=== PATIENT | female | born 1985 | race Caucasian/White ===

== ENCOUNTER 2016-08-15 21:25 | Emergency (ER) | payer OTHER ==
[2016-08-15] MEDS ORDERED: 0.9 % SODIUM CHLORIDE 1,000 ML IV ONE ×2 (21:34→22:51)
[2016-08-15] MEDS ORDERED: ONDANSETRON HCL/PF 4 MG/ 2ML VIAL IVP ONE (21:35)
[2016-08-15 22:06] LABS: BASOPHILS % 0.2 (0.0-1.5); EOSINOPHILS % 0.5 % (0.0-6.8); LYMPHOCYTES # 1.1 # k/uL (0.6-4.0); MEAN CORPUSCULAR HEMOGLOBIN 30.5 pg (28.0-34.0); MONOCYTES # 0.4 # k/uL (0.0-0.9); MONOCYTES % 2.3 % (0.0-11.0); NEUTROPHILS # 16.7 # k/uL (1.4-7.7)
[2016-08-15 22:19] LABS: eGFR (African) > 60; eGFR (Non-African) > 60
[2016-08-15] MEDS ORDERED: PROMETHAZINE HCL 25 MG in 0.9 % SODIUM CHLORIDE 50 ML IV ONE (22:52)
[2016-08-15] MEDS ORDERED: PROMETHAZINE HCL 25 MG/ML VIAL ONE (22:52)
[2016-08-15] MEDS ORDERED: CIPROFLOXACIN HCL 500 MG TABLET PO ONE ×2 (22:52)
--- NOTE | 2016-08-15 23:26 | ED Physician Documentation ---
General Adult - HISTORIAN Historian: patient - HPI Stated Complaint: abd pain n/v Chief Complaint: General Adult Onset: hours (5) Timing: still present Severity: moderate Further Comments: yes (Pt is a 30 yo female who developed n/v abd pain about 1 hr after eating at a [place] restaurant. N/v x > 10 episodes. No fever. Abd pain 2nd to vomiting.) - ROS CONST: other (malaise) EYES/ENT: none CVS/RESP: none GI/: abdominal pain, vomiting, nausea MS/SKIN/LYMPH: none - PAST HX Past History: other (anxiety/depression) Surgeries/Procedures: BTL, cholecystectomy, other (LEEP) Allergies/Adverse Reactions: Allergies Allergy/AdvReac Type Severity Reaction Status Date / Time metformin AdvReac Weakness Verified 08/15/16 21:36 Home Medications: Ambulatory Orders Medication Instructions Recorded Fluoxetine HCl [Fluoxetine HCl] 20 mg PO D 08/15/16 - SOCIAL HX Smoking History: non-smoker - FAMILY HX Family History: No - VITAL SIGNS Vital Signs: Vital Signs Temp Pulse Resp BP Pulse Ox 97.9 F 103 H 16 135/93 98 08/15/16 21:25 08/15/16 21:25 08/15/16 21:25 08/15/16 21:25 08/15/16 21:25 - REVIEWED ASSESSMENTS Nursing Assessment Reviewed: Yes Vitals Reviewed: Yes Progress - Progress Progress: NS 1 L IVF Zofran 4 mg IV Toradol 30 mg IV NS 1 L IVF with 25 mg Phenergan in IVF Rx Ciprofloxacin 500 mg po bid x 5 days, 1st dose in ER. Rx Zofran 4 mg ODT. Take one every 8 hrs as needed for nausea/vomiting. ED Results Lab/Radiology - Lab Results Lab Results: Lab Results 08/15/16 08/15/16 21:52 21:52 WBC 18.50 K/ul H K/ul (4.00-12.00) RBC 4.81 M/ul M/ul (3.90-5.20) Hgb 14.7 g/dL g/dL (12.0-16.0) Hct 42.6 % % (34.5-46.5) MCV 88.7 fl fl (80.0-100.0) MCH 30.5 pg pg (28.0-34.0) MCHC 34.4 g/dL g/dL (30.0-36.0) RDW 13.1 % % (11.3-14.3) Plt Count 310 K/mm3 K/mm3 (130-400) Neut % (Auto) 89.9 % H % (39.0-79.0) Lymph % (Auto) 6.1 % L % (16.0-50.0) [place] % (Auto) 2.3 % % (0.0-11.0) Eos % (Auto) 0.5 % % (0.0-6.8) Baso % (Auto) 0.2 (0.0-1.5) Neut # 16.7 # k/uL H # k/uL (1.4-7.7) Lymph # 1.1 # k/uL # k/uL (0.6-4.0) [place] # 0.4 # k/uL # k/uL (0.0-0.9) Eos # 0.1 # k/uL # k/uL (0.0-0.6) Baso # 0.0 # k/uL # k/uL (0.0-0.5) Reactive Lymphs % 1.0 % % (0.0-5.0) Reactive Lymphs # 0.2 # k/uL # k/uL (0.0-0.8) Sodium 142 mmol/L mmol/L (136-145) Potassium 4.1 mmol/L mmol/L (3.5-5.0) Chloride 110 mmol/L mmol/L (98-110) Carbon Dioxide 34 mmol/L H mmol/L (20-32) BUN 14 mg/dL mg/dL (10-26) Creatinine 0.6 mg/dL mg/dL (0.4-1.5) Est GFR ( Amer) > 60 (60 - ) Est GFR (Non-Af Amer) > 60 (60 - ) Glucose 146 mg/dL H mg/dL (70-99) Calcium 9.6 mg/dL mg/dL (8.5-10.5) Total Bilirubin 0.5 mg/dL mg/dL (0.2-1.2) AST 32 U/L U/L (0-41) ALT 42 U/L U/L (0-45) Alkaline Phosphatase 120 U/L H U/L (46-116) Total Protein 8.3 g/dL g/dL (6.0-8.5) Albumin 5.0 g/dL g/dL (3.0-5.5) Amylase 102 U/L U/L (20-104) - Orders Orders: ED Orders Category Date Time Status Place Saline Lock/IV Now Care 08/15/16 21:35 Active AMYLASE Routine Lab 08/15/16 21:52 Completed CBC/PLATELET/DIFF Routine Lab 08/15/16 21:52 Completed CMP Routine Lab 08/15/16 21:52 Completed UA [URINALYSIS] Routine Lab 08/15/16 Ordered 0.9 % Sodium Chloride [Normal Saline] 1,000 ml Med 08/15/16 21:34 Discontinued IV Q1H 0.9 % Sodium Chloride [Normal Saline] 1,000 ml Med 08/15/16 22:51 Active IV Q1H Ciprofloxacin HCl [Cipro] Med 08/15/16 22:52 Discontinued 500 mg PO .STK-MED ONE Ciprofloxacin HCl [Cipro] Med 08/15/16 22:52 Discontinued 500 mg PO NOW ONE Ondansetron HCl/Pf [Zofran 4 mg/2 ml] Med 08/15/16 21:35 Discontinued 4 mg IVP NOW ONE Promethazine HCl [Phenergan] Med 08/15/16 22:52 Discontinued 25 mg .ROUTE .STK-MED ONE Promethazine HCl [Phenergan] 25 mg Med 08/15/16 22:52 Discontinued 0.9 % Sodium Chloride [Sodium Chloride] 50 ml IV NOW General Adult Physical Exam - PHYSICAL EXAM GENERAL APPEARANCE: moderate distress EENT: ENT inspection normal, pharynx normal NECK: normal inspection, supple RESPIRATORY: no resp distress, chest non-tender, breath sounds normal CVS: reg rate & rhythm, heart sounds normal ABDOMEN: soft, no organomegaly, normal bowel sounds, tenderness (moderate diffuse abd tenderness) BACK: normal inspection, no CVA tenderness SKIN: warm/dry, normal color EXTREMITIES: non-tender, normal range of motion, no evidence of injury NEURO: oriented X3, motor nml, sensation nml Discharge Clincal Impression: Gastroenteritis Referrals: Primary Doctor,No [Primary Care Provider] - 2 Days Home Medications: Ambulatory Orders Fluoxetine HCl [Fluoxetine HCl] 20 mg PO D 08/15/16 Condition: Good Disposition: 01 HOME, SELF-CARE Decision to Admit: NO Decision Time: 23:30
[2016-08-15] MEDS ORDERED: KETOROLAC TROMETHAMINE 30 MG/1ML VIAL ONE (23:30)
[2016-08-15] MEDS ORDERED: KETOROLAC TROMETHAMINE 30 MG/1ML VIAL IVP ONE (23:30)
[2016-08-15] MEDS ORDERED: ONDANSETRON HCL 4 MG TAB.RAPDIS PO ONE (23:36)
[2016-08-15] MEDS ORDERED: ONDANSETRON HCL 4 MG TAB.RAPDIS ONE (23:36)
[2016-08-16 00:57] VITALS: BP 131/88
[2016-08-16 06:02] LABS: APPEARANCE,URINE CLEAR (CLEAR); COLOR,URINE YELLOW (YELLOW); OCCULT BLOOD,URINE 2+ (NEGATIVE); UROBILINOGEN URINE 0.2 Eu (0.2-1.0)
== END 2016-08-16 00:05 | disposition home or self-care (01) ==
LOC: ED 21:25
DX: K52.9 Noninfective gastroenteritis and colitis, unspecified (principal)
CPT/HCPCS: 80053; 81002; 82150; 85025; A9270; J1885; J2405; J2550; J7030; 96361; 96374; 96375; 99284; S1016

== ENCOUNTER 2016-10-01 20:18 | Emergency (ER) | payer OTHER ==
--- NOTE | 2016-10-01 21:03 | ED Physician Documentation ---
General Adult - HISTORIAN Historian: patient - HPI Stated Complaint: cough, chest congestion Chief Complaint: General Adult Additional Information: Cough x 3 weeks, worse last 2 days and feels like a band around chest. No bronchitis or pneumonia in the past. Second hand smoke exposure. - ROS CONST: denies: fever, sweating GI/: vomiting (once with coughing today) - PAST HX Past History: other (anxiety, depression) Surgeries/Procedures: cholecystectomy, other (leep) Allergies/Adverse Reactions: Allergies Allergy/AdvReac Type Severity Reaction Status Date / Time metformin AdvReac Weakness Verified 10/01/16 20:27 Home Medications: Ambulatory Orders Medication Instructions Recorded Fluoxetine HCl [Fluoxetine HCl] 20 mg PO D 08/15/16 predniSONE [Deltasone] 20 mg PO QD #5 tablet 10/01/16 - SOCIAL HX Smoking History: non-smoker, secondhand - FAMILY HX Family History: No - VITAL SIGNS Vital Signs: Vital Signs Temp Pulse Resp BP Pulse Ox 97.4 F L 99 H 28 H 115/81 99 10/01/16 20:25 10/01/16 20:25 10/01/16 20:25 10/01/16 20:25 10/01/16 20:25 - REVIEWED ASSESSMENTS Nursing Assessment Reviewed: Yes Vitals Reviewed: Yes Progress - Progress Progress: Chest 2 views History: 3 weeks of cough and shortness of breath Findings: The lungs are clear and well expanded without infiltrate or pleural effusion. Heart size and pulmonary vascularity are normal. Osseous structures are unremarkable. Impression: Normal. Electronically signed on Oct 01, 2016 9:03:56 PM CDT by: Salomón Urbano ED Results Lab/Radiology - Orders Orders: ED Orders Category Date Time Status CHEST 2 VIEW [CHEST P.A.&LAT 2 VIEWS] [RAD] Stat Exams 10/01/16 Ordered URINE HCG [URINE HCG] Stat Lab 10/01/16 Uncollected General Adult Physical Exam - PHYSICAL EXAM GENERAL APPEARANCE: mild distress EENT: eye inspection normal, TM's nml, pharyngeal erythema NECK: normal inspection, supple RESPIRATORY: breath sounds normal CVS: reg rate & rhythm, heart sounds normal RECTAL: deferred BACK: normal inspection SKIN: warm/dry, normal color EXTREMITIES: no evidence of injury, no edema NEURO: CN's nml as tested, motor nml, sensation nml Discharge Clincal Impression: Bronchitis Prescriptions: predniSONE [Deltasone] 20 mg PO QD #5 tablet Additional Instructions: Drink plenty of water. Avoid all smoke. Follow up with your provider as needed. Return to the ER with increased difficulty breathing. Home Medications: Ambulatory Orders Fluoxetine HCl [Fluoxetine HCl] 20 mg PO D 08/15/16 predniSONE [Deltasone] 20 mg PO QD #5 tablet 10/01/16 Condition: Fair Disposition: 01 HOME, SELF-CARE Decision to Admit: NO Decision Time: 21:25
[2016-10-01] MEDS ORDERED: IPRATROPIUM/ALBUTEROL SULFATE 3 ML AMPUL.NEB NEB ONE ×2 (21:04)
--- NOTE | 2016-10-01 21:09 | Diagnostic Imaging Report ---
[facility] [id number] [facility] [address] Report Submission Date: Oct 01, 2016 9:03:56 PM CDT Patient Study Name: ARIA HODGES Date: Oct 01, 2016 8:48:39 PM CDT Modality Type: CR Gender: F Description: CHEST : 85 Institution: [facility] Physician: NEIDA ENCINAS - ER Chest 2 views History: 3 weeks of cough and shortness of breath Findings: The lungs are clear and well expanded without infiltrate or pleural effusion. Heart size and pulmonary vascularity are normal. Osseous structures are unremarkable. Impression: Normal. Electronically signed on Oct 01, 2016 9:03:56 PM CDT by: Salomón CRAIG
[2016-10-01] MEDS ORDERED: predniSONE 10 MG TABLET PO ONE (21:21)
[2016-10-01 23:04] VITALS: BP 118/64
== END 2016-10-01 21:30 | disposition home or self-care (01) ==
LOC: ED 20:18
DX: J20.9 Acute bronchitis, unspecified (principal)
CPT/HCPCS: 71020; 81025; J7512; 99283